=== PATIENT | female | born 1990 | race Caucasian/White ===

== ENCOUNTER 2018-01-11 08:00 | Outpatient (CLI) | payer SELFPAY ==
[2018-01-11 15:54] LABS: MUDS CUTOFF CONCENTRATIONS CUTOFF CONC BELOW:
[2018-01-11 16:21] LABS: AMPHETAMINE SCREEN,URINE NEGATIVE (NEGATIVE); BENZODIAZEPINES SCREEN, URINE NEGATIVE (NEGATIVE); COCAINE SCREEN URINE NEGATIVE (NEGATIVE); METHADONE SCREEN, URINE NEGATIVE (NEGATIVE); METHAMPHETAMINES SCREEN, URINE NEGATIVE (NEGATIVE); OPIATE SCREEN, URINE POSITIVE (NEGATIVE); OXYCODONE SCREEN, URINE NEGATIVE (NEGATIVE); PROPOXYPHENE SCREEN, URINE NEGATIVE (NEGATIVE); TRICYCLIC ANTIDEPRESSANT,URINE NEGATIVE (NEGATIVE)
== END 2018-01-11 08:01 ==
LOC: LAB.R 08:00
PROVIDERS: ATTEND Nurse Practitioner Obstetrics & Gynecology
DX: Z36.9 Encounter for antenatal screening, unspecified (principal)
CPT/HCPCS: 80306

== ENCOUNTER 2018-01-13 08:00 | Outpatient (CLI) | payer OTHER ==
[2018-01-13 12:40] LABS: HGB - HEMOGLOBIN 12.9 g/dL (12.0-16.0); MEAN CORPUSCULAR HEMOGLOBIN 32.2 pg (27.0-31.0); MEAN CORPUSCULAR HGB CONC 35.8 g/dL (32.0-36.0); MEAN CORPUSCULAR VOLUME 90.1 fL (81.0-99.0); MEAN PLATELET VOLUME 7.6 fL (7.9-10.8); RED CELL DISTRIBUTION WIDTH 12.8 % (12.0-15.0); WHITE BLOOD COUNT 10.9 x10^3/uL (4.8-10.8)
== END 2018-01-13 08:01 ==
LOC: LAB.WCP 08:00
PROVIDERS: ATTEND Nurse Practitioner Obstetrics & Gynecology
DX: Z36.9 Encounter for antenatal screening, unspecified (principal)
CPT/HCPCS: 36415; 82950; 85027; 86850

== ENCOUNTER 2018-01-26 08:00 | Outpatient (CLI) | payer OTHER | END 2018-01-26 08:01 | disposition home or self-care (01) | LOC: LAB.R 08:00 | PROVIDERS: ATTEND Registered Nurse | DX: O60.03 Preterm labor without delivery, third trimester (principal) | CPT/HCPCS: 82731 ==

== ENCOUNTER 2018-01-26 15:45 | Outpatient (CLI) | payer OTHER ==
[2018-01-26 15:58] VITALS: BP 107/74
[2018-01-26] MEDS ORDERED: BETAMETHASONE 30 MG/5 ML VIAL IM ONE (17:00)
--- NOTE | 2018-01-26 17:50 | CONSULTATION NOTE ---
DATE OF SERVICE: 01/26/2018 Physician: Shoaib Ramírez MD PATIENT IDENTIFICATION: Patient is a 27-year-old G2, P1 female whose EDC is 06/2017. This makes her 31 weeks and 1 day. CHIEF COMPLAINT: Brown vaginal discharge. HISTORY OF PRESENT ILLNESS: Patient was seen in the clinic today by Wayne Stubbs, at which time she was noted to have a vaginal brown discharge. An FFN was performed. Following this, pelvic examination showed the internal os to be 1 cm, the external os 5 cm. Her last child was delivered at 39 weeks, however, following a 3-hour labor. She denies any cramps or any other symptoms at this particular time. OB HISTORY: Significant in that she was a transfer from the [facility]. Her first visit was at 29 weeks. She has had none since then. Her drug screen was noted to be positive for opioids. Her first child was delivered on 09/19/2015 at 39 weeks' gestation with a 3-hour labor. PAST MEDICAL HISTORY: Patient denies any hypertensive, diabetic or cardiac disease. PAST SURGICAL HISTORY: Positive for a cholecystectomy. ALLERGIES: NONE KNOWN. CURRENT MEDICATIONS: vitamins. She has received 12.5 mg of betamethasone IM. SOCIAL HISTORY: Patient is to an active duty [employer]. HABITS: Patient denies use of alcohol, tobacco, street or addictive drugs. PHYSICAL EXAMINATION: Patient's heart rate monitor was reviewed. There is no evidence of any contractions. heart rate has a baseline of roughly 135-140. There is accelerations seen. IMPRESSION: A 27-year-old G2, P1 female at 31 and 1 weeks with brown vaginal discharge. Her FFN has been noted to be negative and her cervix external os is noted to be 5, but the internal os is 1 cm. At this particular time, we will monitor. As she is not having contractions, she will be allowed to go home. She will need to return in 24 hours for repeat betamethasone. She will be cautioned regarding contractions or loss of fluid. TD: 01/26/2018 17:15 MARY LOU
== END 2018-01-26 19:40 | disposition home or self-care (01) ==
LOC: WFO 15:45 → FBP 15:47 → WFO 19:40
PROVIDERS: ATTEND Obstetrics & Gynecology
DX: O47.03 False labor before 37 completed weeks of gestation, third trimester (principal); Z3A.31 31 weeks gestation of pregnancy
CPT/HCPCS: 82731; 96372; 99213

== ENCOUNTER 2018-01-27 08:00 | Outpatient (CLI) | payer OTHER | END 2018-01-27 08:01 | LOC: LAB.R 08:00 | PROVIDERS: ATTEND Registered Nurse | DX: O60.03 Preterm labor without delivery, third trimester (principal) | CPT/HCPCS: 87491; 87591 ==

== ENCOUNTER 2018-01-27 15:48 | Outpatient (CLI) | payer OTHER ==
[2018-01-27] MEDS ORDERED: BETAMETHASONE 30 MG/5 ML VIAL IM ONE (16:45)
[2018-01-27 17:28] LABS: BILIRUBIN,URINE NEGATIVE (NEGATIVE); CLARITY,URINE CLEAR (CLEAR); GLUCOSE, URINE (UA) NEGATIVE (NEGATIVE); KETONES,URINE (UA) NEGATIVE (NEGATIVE); LEUKOCYTE ESTERASE, URINE NEGATIVE (NEGATIVE); NITRITE,URINE NEGATIVE (NEGATIVE); OCCULT BLOOD,URINE NEGATIVE (NEGATIVE); PROTEIN,URINE NEGATIVE (NEGATIVE); UROBILINOGEN,URINE 0.2 (NORMAL) E.U./dL (NORMAL)
[2018-01-27 17:40] VITALS: BP 107/63
[2018-01-27] MEDS ORDERED: BETAMETHASONE 30 MG/5 ML VIAL IM SCH (20:58)
== END 2018-01-27 17:00 | disposition home or self-care (01) ==
LOC: WFO 15:48 → FBP 15:54 → WFO 17:00
PROVIDERS: ATTEND Registered Nurse
DX: O47.03 False labor before 37 completed weeks of gestation, third trimester (principal); Z3A.31 31 weeks gestation of pregnancy
CPT/HCPCS: 59025; 81001; 81003; 87086; 87491; 87591; 96372

== ENCOUNTER 2018-02-23 08:00 | Outpatient (CLI) | payer OTHER | END 2018-02-23 08:01 | LOC: LAB.R 08:00 | PROVIDERS: ATTEND Nurse Practitioner Obstetrics & Gynecology | DX: Z36.85 Encounter for antenatal screening for Streptococcus B (principal) | CPT/HCPCS: 87797 ==

== ENCOUNTER 2018-03-25 03:15 | Inpatient (IN) | payer OTHER ==
[2018-03-25] MEDS ORDERED: LIDOCAINE 1% 50 ML MDV ONE ×2 (03:38→09:49)
--- NOTE | 2018-03-25 03:54 | HISTORY & PHYSICAL EXAMINATION ---
Admit History - Instructions [place]/Slash: -Left hand click circles element as positive or present. -Right hand click slashes element as negative or not present. - Visit Reason Visit Reason: Contractions (beginning at 0100) - : 2 Parity: 1 Premature: 0 Ectopic: 0 : 0 Care: positive: [facility], Other ([employer]) Complications This : positive: Other ( labor w/ tocolysis & BMZ administered @ 32 weeks' gestation, no progression) Smoking Status: Never smoker - Mother's Labs Mother's Blood Type: positive: O Mother's RH: positive: Positive GBS: positive: Group B Strep Positive Rubella Status: positive: Non-immune Meds/Allgy - Allergies Allergies/Adverse Reactions: Allergies Allergy/AdvReac Type Severity Reaction Status Date / Time No Known Drug Allergies Allergy Verified 01/26/18 16:01 Review of Systems - Constitutional Constitutional: denies: Fatigue, Fever, Chills - Eyes Eyes: denies: Blurred vision - Cardiovascular Cariovascular: denies: Irregular heart rate, Palpitations, Chest pain, Edema - Respiratory Respiratory: denies: Cough, SOB at rest, SOB with exertion - Gastrointestinal Gastrointestinal: reports: Abdominal pain (contractions). denies: Constipation, Diarrhea, Change in bowel habits, Nausea, Vomiting - Genitourinary Genitourinary: denies: Dysuria, Frequency, Urgency - Musculoskeletal Musculoskeletal: reports: Back pain. denies: Muscle pain - Integumentary Integumentary: denies: Rash, Pruritis, Lesions - Neurological Neurological: denies: General weakness, Focal weakness, Headache - Psychiatric Psychiatric: denies: Depression, Anxiety Physical - Abdominal Exam Contraction Intensity: positive: Strong Uterine Resting Tone: positive: Soft - Monitoring Heart Rate Baseline: 125 Strip Review: positive: Category I - Presentation Presentation: positive: Vertex - Vaginal Exam Membranes: positive: Membranes intact Dilation (in cm): 10 Effacement (%): 100 Station: positive: 1 Cervical Position: positive: Anterior - Speculum Exam Speculum Exam Performed: positive: No Findings: negative: Gross leak - Other Notes Labor Progress Note/Additional Text: Yamilex Arango is a 27 y/o @ 39w3d by first trimester US whose was complicated by + opioids on initial UTOX w/ denial of illicit use, labor @ 31 weeks w/ administration of BMZ x2 @ that time, rubella nonimmune status, hx of HSV w/ suppression t/o third trimester of , GBS positive status & hx of precipitous delivery. She presented this evening complete & pushing & delivered within 12 minutes of arriving at the hospital. Please see delivery note for details. PMH: unremarkable PSH: cholecystectomy 2016, no complications OBhx: , precipitous 2013 gynhx: Hx HSV on suppression, hx BV, denies hx abnormal pap sochx: to [facility], denies DV, denies ETOH/drugs/tobacco, unemployed famhx: noncontributory Plan for Labor - Plan For Labor I expect patient to be DC'd or transferred within 96 hours.: Yes Plan for Labor: admit
[2018-03-25] MEDS ORDERED: MAGNESIUM HYDROXIDE 2,400 MG/30 ML UDC PO PRN (04:04)
[2018-03-25] MEDS ORDERED: HYDROCORTISONE/PRAMOXINE 10 GM PR PRN (04:04)
[2018-03-25] MEDS ORDERED: WITCH HAZEL/GLYCERIN 1 EACH MED..PAD TOP PRN (04:04)
[2018-03-25] MEDS ORDERED: OXYTOCIN 10 UNIT/ML VIAL IM ONE (04:04)
[2018-03-25] MEDS ORDERED: HYDROCORTISONE 1% CREAM 28 GM TUBE PR PRN (04:04)
[2018-03-25] MEDS ORDERED: MEASLES,MUMPS & RUBELLA VACC 0.5 ML VIAL SUBQ ONE (04:04)
--- NOTE | 2018-03-25 04:04 | DELIVERY NOTE ---
Delivery Note - Labor Labor: positive: Spontaneous - Delivery Method Delivery Method: positive: Spontaneous vaginal delivery - Presentation Presentation: positive: Vertex, MARCOS - left occiput anterior - Nuchal Cord Nuchal Cord: positive: None - Anesthetic Anesthetic Type: Anesthetic: positive: Lidocaine - 1% plain Volume: positive: Other (10mL) - Amniotic Fluid Description Amniotic Fluid Description: positive: Clear (SROM with emergence of head) - Episiotomy Type Episiotomy Type: positive: None - Laceration Laceration: positive: 1st degree - Suture Suture Type: positive: Vicryl Suture Size: positive: 2-0 - Delivery Outcome Delivery Outcome: positive: Livebirth - : positive: Placed in direct skin contact with mother, Stimulated, Warmed, [place] used [place] sex: positive: Female - Cord Cord: positive: 3 vessels - Placenta Placenta: positive: Intact, Spontaneous - Estimated Blood Loss Estimated Blood Loss (in cc): 250 - Post Delivery Events Post Delivery Events: positive: No post delivery events - Delivery Comments (Free Text/Narrative) Delivery Comments (Free Text/Narrative): Yamilex Arango is a 27 y/o @ 39w3d by first trimester US who presented this evening in spontaneous, active labor w/ onset of uterine contractions @ 0100. She arrived complete & pushing @ 0324, for a total first stage of 2 hours, 24 minutes. She pushed w/ spontaneous urge & intact BOW to viable female in MARCOS position en caul @ 0336, for a total 2nd stage duration of 12 minutes; SROM w/ delivery of shoulders after delivery of head, delivered rapidly, vigorous, w/ spontaneous, lusty cry. passed through maternal legs to maternal abdomen. Apgars 8/9. Modified active management of the third stage of labor w/ 10units Pitocin IM s/p delivery of . Delayed cord clamping until cessation of pulsation, then cord clamped x2 by CNM, cut by FOB, 3VC noted, cord blood obtained. Placenta del spont & intact, Myrtle, @ 0337, for a total 3rd stage duration of 1 minute. FF @ U. Vagina & perineum inspected & 1st degree perineal laceration noted, repaired s/p infiltration w/ 10mL 1% lidocaine w/ 3 stitches 2-0 vicryl. Hemostatic & well-approximated. EBL 250mL. Mother & infant stable. Actively w/ 04/07 latch w/in minutes of delivery. Did not receive IPAP for GBS positive status, will plan 48-hour stay.
[2018-03-25] MEDS ORDERED: OXYTOCIN/SODIUM CHLORIDE 250 ML IV ONE (05:19)
[2018-03-25] MEDS ORDERED: METHYLERGONOVINE 0.2 MG/ML AMP IM ONE (05:19)
[2018-03-25] MEDS ORDERED: SODIUM CHLORIDE FLUSH 0.9% 10 ML SYRINGE ONE ×2 (05:24→10:21)
[2018-03-25] MEDS: ACETAMINOPHEN 500 MG TABLET PO SCH ×3 (05:49→22:12)
[2018-03-25] MEDS: IBUPROFEN 800 MG TABLET PO SCH ×3 (05:50→20:19)
[2018-03-25 05:55] LABS: BASOPHILS # (AUTO) 0.1 10^3/uL (0.0-0.1); BASOPHILS % (AUTO) 0.4 %; EOSINOPHILS % (AUTO) 0.2 %; HGB - HEMOGLOBIN 13.2 g/dL (12.0-16.0); LYMPHOCYTES # (AUTO) 1.4 10^3/uL (1.5-3.5); LYMPHOCYTES % (AUTO) 8.1 %; MEAN CORPUSCULAR HEMOGLOBIN 31.2 pg (27.0-31.0); MEAN CORPUSCULAR HGB CONC 34.9 g/dL (32.0-36.0); MEAN CORPUSCULAR VOLUME 89.3 fL (81.0-99.0); MEAN PLATELET VOLUME 7.2 fL (7.9-10.8); MONOCYTES # (AUTO) 0.7 10^3/uL (0.0-1.0); MONOCYTES % (AUTO) 3.8 %; NEUTROPHILS # (AUTO) 15.4 10^3/uL (1.5-6.6); NEUTROPHILS % (AUTO) 87.5 %; PLT - PLATELET COUNT 228 10^3/uL (130-450); RED BLOOD COUNT 4.25 10^6/uL (4.20-5.40); WHITE BLOOD COUNT 17.6 x10^3/uL (4.8-10.8)
[2018-03-25] MEDS: DOCUSATE SODIUM 100 MG CAPSULE PO SCH ×2 (09:31→22:12)
[2018-03-25] MEDS ORDERED: LIDOCAINE 1% 50 ML MDV TD ONE (09:38)
[2018-03-25] MEDS: SIMETHICONE CHEW 80 MG TABLET PO SCH ×2 (10:12→14:05)
[2018-03-26] MEDS: IBUPROFEN 800 MG TABLET PO SCH ×4 (02:03→21:57)
[2018-03-26] MEDS: ACETAMINOPHEN 500 MG TABLET PO SCH ×3 (06:23→21:58)
[2018-03-26] MEDS: SIMETHICONE CHEW 80 MG TABLET PO SCH ×3 (08:14→14:25)
[2018-03-26] MEDS: DOCUSATE SODIUM 100 MG CAPSULE PO SCH ×2 (08:27→21:58)
--- NOTE | 2018-03-26 09:04 | PROVIDER PROGRESS NOTE ---
Subjective - Subjective Subjective: S: Bonding well with baby. without difficulty. Denies pain. Bleeding decreased and is scant. Mood is good. supportive at the bedside. Baby had a 10% weight loss in 24 hours - suspect initial weight error. O: BP 100/54, T36.8, HR71, RR16 Heart RRR w/o M/G/R, lungs CTAB, abdomen soft and nontender with fundus firm at -2. Bilateral LE"s no edema. Perineum intact. Light lochia rubra. Mood is good. A: 27yo -->P2 PPD#1 s/p TSVD of viable female infant GBS positive - no treatment secondary to precipitous delivery P: Continue routine care and medications. Plan for discharge home tomorrow. Pt verbalized understanding and agrees to above plan. Denies further questions or concerns at this time. Objective - Vital Signs/Intake & Output Vital Signs: Vital Signs x48h Temp Pulse Resp BP Pulse Ox 03/26/18 08:33 36.7 C 78 16 114/67 98 03/26/18 02:00 36.8 C 71 16 100/54 L 99 Intake & Output: Intake & Output 03/23/18 03/24/18 03/25/18 03/26/18 23:59 23:59 23:59 23:59 Intake Total 250 Output Total 1350 Balance -1100 - Lab Results Fish Bones: 03/25/18 05:35
[2018-03-27] MEDS: SIMETHICONE CHEW 80 MG TABLET PO SCH (04:29)
[2018-03-27] MEDS: IBUPROFEN 800 MG TABLET PO SCH ×2 (04:30→10:56)
--- NOTE | 2018-03-27 07:14 | Discharge Plan ---
Discharge Plan Disposition: 01 Home, Self Care Condition: Good Diet: Regular Activity Restrictions: No Restrictions Shower Restrictions: No Driving Restrictions: No Weight Bearing: Full Weight No Smoking: If you smoke, Please STOP! Call for help. Follow-up with: Yamilex Benavides CNM, ARNP [Provider Admit Priv/Credential] -
--- NOTE | 2018-03-27 07:22 | PROVIDER PROGRESS NOTE ---
Subjective - Subjective Subjective: FINAL PROGRESS NOTE S: Bonding well with baby. without difficulty and baby has gained weight in the past 24 hours. Pt states she can feel her breasts becoming more full and feels her milk is already starting to come in. She is experiencing right lower back discomfort that radiates down the back of her leg. She states the pain is new since the middle of the night and feels muscular in origin. She thinks she may have slept in a compromising position. Denies pain elsewhere and has been taking ibuprofen and tylenol and receiving adequate pain management. Bleeding is light. Mood is good. They are anxious to go home today. sleeping at the bedside. O: BP 112/66, T36.4, HR 71 RR 16 Heart RRR w/o M/G/R, lungs CTAB, abdomen soft and nontender with fundus firm at U-2. Perineum intact. Light lochia rubra. Bilateral LE's no edema. A: 27yo -->P2 s/p TSVD of viable female infant PPD#2 Rubella non-immune GBS positive - untreated secondary to precipitous delivery P: Reviewed self care and warning signs. Pt declines MMR and plans to receive at [facility]. Advised continuation of PNV while . Continue ibuprofen and tylenol for pain management. She intends to f/u with CNM at [facility] in 1 week for lactatio n support visit and then in 3 weeks for routine visit. Pt verbalized understanding and agrees to above plan. She denies further questions or concerns at this time. Objective - Vital Signs/Intake & Output Vital Signs: Vital Signs x48h Temp Pulse Resp BP Pulse Ox 03/27/18 04:31 36.4 C L 71 16 112/66 98 Intake & Output: Intake & Output 03/24/18 03/25/18 03/26/18 03/27/18 23:59 23:59 23:59 23:59 Intake Total 250 975 Output Total 1350 Balance -1100 975 - Lab Results Fish Bones: 03/25/18 05:35
[2018-03-27 07:37] VITALS: BP 126/82
[2018-03-27] MEDS: ACETAMINOPHEN 500 MG TABLET PO SCH (10:55)
[2018-03-27] MEDS: DOCUSATE SODIUM 100 MG CAPSULE PO SCH (10:56)
--- NOTE | 2018-03-27 12:08 | Labor Flowsheet ---
Labor Flowsheet Datetime Report Generated by CPN: 03/27/2018 12:08 Datetime: 03/26/2018 08:19 VITAL SIGNS NBP Sys/Ceci/Mean (mmHg): 114 : 67 : 78 Pulse: 69 COMMUNICATION LaborFlag: Labor Datetime: 03/26/2018 06:28 SpO2 (%): 99
--- NOTE | 2018-03-27 18:11 | DISCHARGE SUMMARY ---
Physician: GERALD Hall DATE OF ADMISSION: 03/25/2018 DATE OF DISCHARGE: 03/27/2018 DIAGNOSES ON ADMISSION 1. A 27-year-old G2, P1-0-0-1, at 39 and 3 weeks gestation. 2. GBS positive. 3. Active labor. 4. History of precipitous delivery. DIAGNOSES ON DISCHARGE, COURSE 1. A 27-year-old, G2, P2-0-0-2, status post spontaneous vaginal delivery on 03/25/2018. 2. Normal recovery. HISTORY OF PRESENT ILLNESS: Yamilex is a patient of [facility] who presents to [facility] with complaints of contractions. She arrived complete and pushing at 0324 for a total first stage duration of 2 hours and 24 minutes. She delivered a viable female infant en- caul at 0336. Spontaneous rupture of membranes occurred with delivery of shoulder after delivery of head. Apgars were 8 and 9 at 1 and 5 minutes respectively. EBL 250 mL. Vagina and perineum inspected and a first-degree laceration was noted and repaired in the usual fashion under sterile conditions with a 2-0 Vicryl. The patient has been doing well in her course. She is ambulating and tolerating a regular diet. She is without difficulty. Her lochia is normal and her perineal laceration is intact. Her pain is well controlled with oral medications. She has been given precautions to call if she has any worsening fevers, chills, abdominal pain, increased vaginal bleeding or foul smelling vaginal lochia. She intends to follow up with a CNM at [facility] in 1 week for support visit and then in 3 weeks for routine visit. She denies further questions or concerns today and will be discharged home on day #2. TD: 03/27/2018 07:35 MARY LOU
--- NOTE | 2018-03-27 18:34 | DISCHARGE SUMMARY ---
Physician: GERALD Hall DATE OF ADMISSION: 03/25/2018 DATE OF DISCHARGE: 03/27/2018 DIAGNOSES ON ADMISSION 1. A 27-year-old G2, P1-0-0-1, at 39 and 3 weeks gestation. 2. GBS positive. 3. Active labor. 4. History of precipitous delivery. DIAGNOSES ON DISCHARGE, COURSE 1. A 27-year-old, G2, P2-0-0-2, status post spontaneous vaginal delivery on 03/25/2018. 2. Normal recovery. HISTORY OF PRESENT ILLNESS: The patient is a patient of [facility] who presents to [facility] with complaints of contractions. She arrived complete and pushing a t 0324 for a total first stage of 2 hours and 24 minutes. She delivered a viable female en-ca ul at 0336. Spontaneous rupture of membranes occurred with delivery of shoulder after delivery of fe concepción head. Apgars were 8 and 9 at 1 and 5 minutes respectively. EBL 250 mL Vagina and perineum inspe cted and a first-degree laceration was noted and repaired in the usual fashion under sterile conditio ns with a 2-0 Vicryl. The patient has been doing well in her course. She is ambulating and tolerating a regular diet. She is without difficulty. Her lochia is normal and her perineal laceration is intact. Her pain is well controlled with oral medications. She has been given precautions to call if she has any worsening fevers, chills, abdominal pain, increased vaginal bleeding or foul smelling vaginal lochia. She intends to followup with a CNM at [facility] in 1 week for lact ation support visit and then in 3 weeks for routine visit. She denies further questions o r concerns today and will be discharged home on day #2. TD: 03/27/2018 07:35
== END 2018-03-27 12:05 | disposition home or self-care (01) | DRG 775 ==
LOC: WFO 03:15 → FBP 03:17 → WFO 04:19 → FBP 04:20 → OBS 03-26 10:23
PROVIDERS: ADMIT Registered Nurse; ATTEND Nurse Practitioner Obstetrics & Gynecology
PROC: 10E0XZZ Delivery of Products of Conception, External Approach (ICD-10-PCS; principal; 2018-03-25)
PROC: 0HQ9XZZ Repair Perineum Skin, External Approach (ICD-10-PCS; 2018-03-25)
DX: O99.824 Streptococcus B carrier state complicating childbirth (principal); Z37.0 Single live birth; O70.0 First degree perineal laceration during delivery; Z3A.39 39 weeks gestation of pregnancy; O62.3 Precipitate labor
CPT/HCPCS: 85025; 86850; 86900; 86901

== ENCOUNTER 2019-06-03 19:17 | Emergency (ER) | payer OTHER ==
[2019-06-03 19:53] LABS: BASOPHILS % (AUTO) 0.3 %; EOSINOPHILS % (AUTO) 0.2 %; HGB - HEMOGLOBIN 13.7 g/dL (12.0-16.0); LYMPHOCYTES # (AUTO) 0.4 10^3/uL (1.5-3.5); LYMPHOCYTES % (AUTO) 3.3 %; MEAN CORPUSCULAR HEMOGLOBIN 29.9 pg (27.0-31.0); MEAN CORPUSCULAR HGB CONC 34.6 g/dL (32.0-36.0); MEAN CORPUSCULAR VOLUME 86.5 fL (81.0-99.0); MEAN PLATELET VOLUME 9.2 fL (7.9-10.8); MONOCYTES # (AUTO) 0.4 10^3/uL (0.0-1.0); MONOCYTES % (AUTO) 2.8 %; NEUTROPHILS # (AUTO) 12.3 10^3/uL (1.5-6.6); NEUTROPHILS % (AUTO) 92.9 %; PLT - PLATELET COUNT 260 10^3/uL (130-450); RED BLOOD COUNT 4.58 10^6/uL (4.20-5.40); RED CELL DISTRIBUTION WIDTH 12.3 % (12.0-15.0); WHITE BLOOD COUNT 13.2 x10^3/uL (4.8-10.8)
[2019-06-03 20:14] LABS: ALBUMIN/GLOBULIN RATIO 1.7 (1.0-2.2); BILIRUBIN,TOTAL 1.1 mg/dL (0.2-1.0); CALCIUM 9.4 mg/dL (8.5-10.3); CREATININE 0.8 mg/dL (0.4-1.0)
[2019-06-03 20:41] LABS: GLUCOSE, URINE (UA) NEGATIVE (NEGATIVE); KETONES,URINE (UA) NEGATIVE (NEGATIVE); LEUKOCYTE ESTERASE, URINE NEGATIVE (NEGATIVE); NITRITE,URINE NEGATIVE (NEGATIVE); OCCULT BLOOD,URINE NEGATIVE (NEGATIVE); PH,URINE 5.5 PH (5.0-7.5); PROTEIN,URINE TRACE mg/dL (NEGATIVE); UROBILINOGEN,URINE 0.2 (NORMAL) E.U./dL (NORMAL)
[2019-06-03 20:52] LABS: BILIRUBIN,URINE NEGATIVE (NEGATIVE); CLARITY,URINE CLOUDY (CLEAR); HCG UR QUAL NEGATIVE; ICTOTEST,URINE NEGATIVE
[2019-06-03] MEDS ORDERED: SODIUM CHLORIDE 0.9% 1,000 ML IV STA (20:52)
[2019-06-03] MEDS ORDERED: ONDANSETRON 4 MG/2 ML VIAL IVP STA (20:52)
[2019-06-03 20:53] LABS: AMORPHOUS SEDIMENT,UR Marked /LPF; BACTERIA,URINE None Seen /HPF (None Seen); MUCUS,URINE Few Strands; RBC,URINE None Seen /HPF (0-5); SQUAMOUS EPITHELIAL CELL,UR NONE SEEN (<= Few)
--- NOTE | 2019-06-03 20:55 | ED Physician Documentation ---
PD HPI NVD - Stated complaint Stated Complaint: N/V/D CHEST TIGHTNESS, ABD PAIN - Chief complaint Chief Complaint: Abd Pain - History obtained from History obtained from: Patient - History of Present Illness Timing - onset: Today Timing - duration: Hours Timing - details: Gradual onset, Waxing and waning Pain level now: 4 Associated symptoms: Abdominal pain (lower abdomen). No: Fever, Dysuria Improved by: Other (nothing) Worsened by: Eating Similar symptoms before: Has not had sx before Recently seen: Not recently seen - Additonal information Additional information: c/o nausea, vomiting, diarrhea since this afternoon. As the intensity and frequency of these symptoms have progressed, she has developed chest tightness/heaviness, with dizziness, tremulousness, generalized weakness, and cramping abdominal pain across lower abdomen. Review of Systems Constitutional: reports: Chills, Fatigue. denies: Fever, Sweats Cardiac: reports: Chest pain / pressure. denies: Palpitations, Pedal edema, Calf pain Respiratory: reports: Dyspnea. denies: Cough GI: reports: Abdominal Pain, Nausea, Vomiting, Diarrhea : denies: Dysuria, Frequency Musculoskeletal: reports: Reviewed and negative Neurologic: reports: Generalized weakness. denies: Focal weakness, Numbness, Headache PD PAST MEDICAL HISTORY - Past Medical History Past Medical History: No - Past Surgical History Past Surgical History: Yes General: Cholecystectomy - Present Medications Home Medications: Ambulatory Orders Medication Instructions Recorded Confirmed Diphenoxylate/Atropine [Lomotil] 1 each PO QID PRN #14 tablet 06/03/19 Ondansetron Odt [Zofran] 4 mg TL Q6H PRN #10 tablet 06/03/19 - Allergies Allergies/Adverse Reactions: Allergies Allergy/AdvReac Type Severity Reaction Status Date / Time No Known Drug Allergies Allergy Verified 06/03/19 19:31 - Living Situation Living Arrangement: reports: At home - Social History Smoking Status: Never smoker PD ED PE NORMAL - Vitals Vital signs reviewed: Yes - General General: Alert and oriented X 3, No acute distress, Well developed/nourished - HEENT HEENT: Moist mucous membranes - Neck Neck: Supple, no meningeal sign - Cardiac Cardiac: RRR, No murmur - Respiratory Respiratory: No respiratory distress, Clear bilaterally - Abdomen Abdomen: Normal bowel sounds, Soft, Non tender, Non distended - Back Back: No CVA TTP - Derm Derm: Normal color, Warm and dry - Extremities Extremities: No edema Results - Vitals Vitals: Vital Signs - 24 hr 06/03/19 06/03/19 19:31 23:29 Temperature 36.6 C Heart Rate 104 H 90 Respiratory 14 18 Rate Blood Pressure 103/64 108/68 O2 Saturation 98 98 Oxygen O2 Source Room air - EKG (time done) No standard instances Rate: Rate (enter#) (109) Rhythm: Sinus tachycardia [place]: Normal Intervals: Normal PA QRS: Normal Ischemia: Normal ST segments, T wave inversion (V1, V2 (biphasic V3)) - Labs Labs: Laboratory Tests 06/03/19 06/03/19 06/03/19 19:44 19:44 19:44 WBC 13.2 H RBC 4.58 Hgb 13.7 Hct 39.6 MCV 86.5 MCH 29.9 MCHC 34.6 RDW 12.3 Plt Count 260 MPV 9.2 Neut # (Auto) 12.3 H Lymph # (Auto) 0.4 L [place] # (Auto) 0.4 Eos # (Auto) 0.0 Baso # (Auto) 0.0 Absolute Nucleated RBC 0.00 Nucleated RBC % 0.0 Sodium 139 Potassium 3.8 Chloride 102 Carbon Dioxide 26 Anion Gap 11.0 BUN 17 Creatinine 0.8 Estimated GFR (MDRD) 87 L Glucose 126 H Calcium 9.4 Total Bilirubin 1.1 H AST 23 ALT 20 Alkaline Phosphatase 53 Troponin I High Sens < 2.3 L Total Protein 8.0 Albumin 5.0 Globulin 3.0 Albumin/Globulin Ratio 1.7 Lipase 30 Urine Color Urine Clarity Urine pH Ur Specific [place] Urine Protein Urine Glucose (UA) Urine Ketones Urine Occult Blood Urine Nitrite Urine Bilirubin Urine Urobilinogen Ur Leukocyte Esterase Urine RBC Urine WBC Ur Squamous Epith Cells Amorphous Sediment Urine Bacteria Urine Mucus Ur Microscopic Review Urine Culture Comments Urine HCG, Qual 06/03/19 20:35 WBC RBC Hgb Hct MCV MCH MCHC RDW Plt Count MPV Neut # (Auto) Lymph # (Auto) [place] # (Auto) Eos # (Auto) Baso # (Auto) Absolute Nucleated RBC Nucleated RBC % Sodium Potassium Chloride Carbon Dioxide Anion Gap BUN Creatinine Estimated GFR (MDRD) Glucose Calcium Total Bilirubin AST ALT Alkaline Phosphatase Troponin I High Sens Total Protein Albumin Globulin Albumin/Globulin Ratio Lipase Urine Color YELLOW Urine Clarity CLOUDY Urine pH 5.5 Ur Specific [place] >=1.030 H Urine Protein TRACE Urine Glucose (UA) NEGATIVE Urine Ketones NEGATIVE Urine Occult Blood NEGATIVE Urine Nitrite NEGATIVE Urine Bilirubin NEGATIVE Urine Urobilinogen 0.2 (NORMAL) Ur Leukocyte Esterase NEGATIVE Urine RBC None Seen Urine WBC 0-3 Ur Squamous Epith Cells NONE SEEN Amorphous Sediment Marked Urine Bacteria None Seen Urine Mucus Few Strands Ur Microscopic Review INDICATED Urine Culture Comments NOT INDICATED Urine HCG, Qual NEGATIVE PD MEDICAL DECISION MAKING - ED course Complexity details: reviewed results, re-evaluated patient, considered differential, d/w patient Departure - Departure Disposition: 01 Home, Self Care Clinical Impression: Vomiting and diarrhea Condition: Good Instructions: ED Diet Vomiting Diarrhea, ED Vomiting Diarrhea Nonspecific Ad Prescriptions: Diphenoxylate/Atropine [Lomotil] 1 each PO QID PRN #14 tablet PRN Reason: Diarrhea Ondansetron Odt [Zofran] 4 mg TL Q6H PRN #10 tablet PRN Reason: Nausea / Vomiting Discharge Date/Time: 06/03/19 23:32
[2019-06-03] MEDS ORDERED: DIPHENOX/ATROPINE 2.5/0.025 MG TABLET PO STA (23:22)
[2019-06-03 23:29] VITALS: BP 108/68
== END 2019-06-03 23:32 | disposition home or self-care (01) ==
LOC: ED 19:17
DX: R11.2 Nausea with vomiting, unspecified (principal); R19.7 Diarrhea, unspecified
CPT/HCPCS: 36415; 80053; 81001; 81025; 83690; 84484; 85025; 93005; 96360; 99284; A9270; 81003; 87086

== ENCOUNTER 2020-08-24 07:45 | Outpatient (CLI) | payer OTHER ==
--- NOTE | 2020-08-24 11:00 | XRAY Report ---
PROCEDURE: Ankle 3 View LT INDICATIONS: LEFT ANKLE PAIN TECHNIQUE: 3 views of the ankle were acquired. COMPARISON: None. FINDINGS: Bones: No fractures or dislocations. Ankle mortise is normally aligned. No suspicious bony lesions . Soft tissues: Moderate-sized tibiotalar joint effusion. Achilles tendon appears normal. IMPRESSION: No fracture. Moderate-sized ankle joint effusion may indicate ligamentous injury, which c an be further evaluated with MRI. Reviewed by: Trevor Musa MD on 08/24/2020 10:58 AM [facility] Approved by: Trevor Musa MD on 08/24/2020 10:58 AM [facility] Station ID: [id number]
== END 2020-08-24 23:59 | disposition home or self-care (01) ==
LOC: DI.N 07:45
PROVIDERS: ATTEND Family Medicine
DX: M25.572 Pain in left ankle and joints of left foot (principal); M25.472 Effusion, left ankle

== ENCOUNTER 2021-07-25 19:55 | Emergency (ER) | payer OTHER ==
[2021-07-25 20:12] VITALS: BP 131/73
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
== END 2021-07-25 20:55 | disposition home or self-care (01) ==
LOC: ED 19:55
DX: S16.1XXA Strain of muscle, fascia and tendon at neck level, initial encounter (principal); V43.52XA Car driver injured in collision with other type car in traffic accident, initial encounter; Y93.89 Activity, other specified; Y92.410 Unspecified street and highway as the place of occurrence of the external cause
CPT/HCPCS: 99281; 99282

== ENCOUNTER 2021-08-09 14:09 | Outpatient (CLI) | payer OTHER ==
--- NOTE | 2021-08-09 14:43 | XRAY Report ---
PROCEDURE: Cervical Spine 2 View INDICATIONS: Acute neck pain TECHNIQUE: 3 view(s) of the cervical spine were acquired. COMPARISON: None. FINDINGS: Normal cervical spine vertebral body height and alignment. No degenerative changes. No suspicious lyt ic or blastic osseous lesion. Regional soft tissues are normal. IMPRESSION: Normal study. Reviewed by: Trevor Musa MD on 08/09/2021 2:41 PM PST Approved by: Trevor Musa MD on 08/09/2021 2:41 PM PST Station ID: [id number]
== END 2021-08-09 14:10 | disposition home or self-care (01) ==
LOC: DI 14:09
PROVIDERS: ATTEND Internal Medicine
DX: M54.2 Cervicalgia (principal); Z91.89 Other specified personal risk factors, not elsewhere classified

== ENCOUNTER 2021-08-23 09:05 | Outpatient (CLI) | payer OTHER ==
--- NOTE | 2021-08-23 11:03 | CT Report ---
PROCEDURE: HEAD WO INDICATIONS: HEADACHE TECHNIQUE: Noncontrast 4.5 mm thick angled axial sections acquired from the foramen magnum to the vertex. For r adiation dose reduction, the following was used: automated exposure control, adjustment of mA and/or kV according to patient size. COMPARISON: None. FINDINGS: Image quality: Excellent. CSF spaces: Basal cisterns are patent. No extra-axial fluid collections. Ventricles are normal in size and shape. Brain: No midline shift. No intracranial masses or hemorrhage. Chu-white matter interface is norm al. Skull and face: Calvarium and visualized facial bones are intact, without suspicious lesions. Sinuses: Visualized sinuses and mastoids are clear. IMPRESSION: No intracranial disease process. Reviewed by: Nadege Wesley MD, PhD on 08/23/2021 11:02 AM PST Approved by: Nadege Wesley MD, PhD on 08/23/2021 11:02 AM [facility] Station ID: [id number]
== END 2021-08-23 09:06 | disposition home or self-care (01) ==
LOC: DI 09:05
PROVIDERS: ATTEND Internal Medicine
DX: G44.89 Other headache syndrome (principal)

== ENCOUNTER 2021-10-08 08:00 | Outpatient (CLI) | payer OTHER | END 2021-10-08 23:59 | disposition home or self-care (01) | LOC: LAB.R 08:00 | PROVIDERS: ATTEND Physician Assistant Medical | DX: J06.9 Acute upper respiratory infection, unspecified (principal); Z20.822 Contact with and (suspected) exposure to COVID-19 ==

== ENCOUNTER 2021-10-14 08:54 | Outpatient (CLI) | payer OTHER ==
[2021-10-14 09:17] LABS: BASOPHILS % (AUTO) 0.6 %; EOSINOPHILS # (AUTO) 0.2 10^3/uL (0.0-0.7); EOSINOPHILS % (AUTO) 3.2 %; HCT - HEMATOCRIT 37.8 % (37.0-47.0); HGB - HEMOGLOBIN 13.5 g/dL (12.0-16.0); LYMPHOCYTES # (AUTO) 1.4 10^3/uL (1.5-3.5); LYMPHOCYTES % (AUTO) 22.7 %; MEAN CORPUSCULAR HGB CONC 35.7 g/dL (32.0-36.0); MEAN PLATELET VOLUME 8.9 fL (7.9-10.8); MONOCYTES # (AUTO) 0.4 10^3/uL (0.0-1.0); MONOCYTES % (AUTO) 5.8 %; NEUTROPHILS # (AUTO) 4.2 10^3/uL (1.5-6.6); NEUTROPHILS % (AUTO) 66.9 %; PLT - PLATELET COUNT 283 10^3/uL (130-450); RED CELL DISTRIBUTION WIDTH 11.9 % (12.0-15.0); WHITE BLOOD COUNT 6.3 x10^3/uL (4.8-10.8)
[2021-10-14 10:04] LABS: BILIRUBIN,URINE NEGATIVE (NEGATIVE); GLUCOSE, URINE (UA) NEGATIVE (NEGATIVE); KETONES,URINE (UA) NEGATIVE (NEGATIVE); LEUKOCYTE ESTERASE, URINE NEGATIVE (NEGATIVE); NITRITE,URINE NEGATIVE (NEGATIVE); OCCULT BLOOD,URINE NEGATIVE (NEGATIVE); PH,URINE 6.5 PH (5.0-7.5); PROTEIN,URINE NEGATIVE (NEGATIVE); UROBILINOGEN,URINE 0.2 (NORMAL) E.U./dL (NORMAL)
[2021-10-14 10:07] LABS: ALBUMIN 4.2 g/dL (3.2-5.5); ALBUMIN/GLOBULIN RATIO 1.4 (1.0-2.2); ALKALINE PHOSPHATASE 55 IU/L (42-121); ALT ALANINE AMINOTRANSFERASE 39 IU/L (10-60); AST ASPARTATE AMINOTRANSFERASE 22 IU/L (10-42); BILIRUBIN,TOTAL 0.2 mg/dL (0.2-1.0); BUN - BLOOD UREA NITROGEN 10 mg/dL (6-20); CALCIUM 8.8 mg/dL (8.5-10.3); CARBON DIOXIDE - CO2 25 mmol/L (21-32); CHLORIDE 102 mmol/L (101-111); CHOL/HDL RATIO 5.4 (<4.4); CHOLESTEROL 150 mg/dL; CREATININE 0.7 mg/dL (0.4-1.0); GFR - MDRD 99 (>89); GLUCOSE 98 mg/dL (70-100); HDL CHOLESTEROL 28 mg/dL; LDL CHOLESTEROL,CALCULATED 44 mg/dL; LDL/HDL RATIO 1.6 (<4.4); SODIUM 136 mmol/L (135-145); TOTAL PROTEIN 7.3 g/dL (6.7-8.2); TRIGLYCERIDES 388 mg/dL; VLDL CHOLESTEROL 78 mg/dL
[2021-10-14 10:08] LABS: CLARITY,URINE CLEAR (CLEAR)
[2021-10-14 10:14] LABS: THYROID STIMULATING HORMONE 1.19 uIU/mL (0.34-5.60)
[2021-10-14 10:32] LABS: RBC,URINE 0-5 /HPF (0-5); WBC,URINE 0-3 /HPF (0-5)
[2021-10-14 10:33] LABS: BACTERIA,URINE Few /HPF (None Seen); SQUAMOUS EPITHELIAL CELL,UR FEW Squamous (<= Few)
== END 2021-10-14 08:55 | disposition home or self-care (01) ==
LOC: LAB 08:54
PROVIDERS: ATTEND Nurse Practitioner
DX: R53.83 Other fatigue (principal); Z13.220 Encounter for screening for lipoid disorders; Z13.1 Encounter for screening for diabetes mellitus
CPT/HCPCS: 36415; 80050; 80061; 81001; 81599; 83036; 83721; 87086

== ENCOUNTER 2022-10-29 08:22 | Outpatient (CLI) | payer OTHER ==
[2022-10-29 08:40] LABS: BASOPHILS % (AUTO) 0.5 %; EOSINOPHILS # (AUTO) 0.1 10^3/uL (0.0-0.7); EOSINOPHILS % (AUTO) 1.6 %; HCT - HEMATOCRIT 39.6 % (37.0-47.0); HGB - HEMOGLOBIN 13.7 g/dL (12.0-16.0); LYMPHOCYTES # (AUTO) 1.6 10^3/uL (1.5-3.5); LYMPHOCYTES % (AUTO) 26.1 %; MEAN CORPUSCULAR HEMOGLOBIN 29.9 pg (27.0-31.0); MEAN CORPUSCULAR HGB CONC 34.6 g/dL (32.0-36.0); MEAN CORPUSCULAR VOLUME 86.5 fL (81.0-99.0); MEAN PLATELET VOLUME 9.2 fL (7.9-10.8); MONOCYTES # (AUTO) 0.4 10^3/uL (0.0-1.0); MONOCYTES % (AUTO) 6.2 %; NEUTROPHILS % (AUTO) 65.1 %; PLT - PLATELET COUNT 250 10^3/uL (130-450); RED BLOOD COUNT 4.58 10^6/uL (4.20-5.40); WHITE BLOOD COUNT 6.1 x10^3/uL (4.8-10.8)
[2022-10-29 09:08] LABS: ALBUMIN 4.3 g/dL (3.2-5.5); ALBUMIN/GLOBULIN RATIO 1.5 (1.0-2.2); ALKALINE PHOSPHATASE 57 IU/L (42-121); ALT ALANINE AMINOTRANSFERASE 20 IU/L (10-60); AST ASPARTATE AMINOTRANSFERASE 16 IU/L (10-42); BILIRUBIN,TOTAL 0.7 mg/dL (0.2-1.0); BUN - BLOOD UREA NITROGEN 13 mg/dL (6-20); CALCIUM 8.9 mg/dL (8.5-10.3); CARBON DIOXIDE - CO2 26 mmol/L (21-32); CHLORIDE 105 mmol/L (101-111); CHOL/HDL RATIO 4.9 (<4.4); CHOLESTEROL 178 mg/dL; CREATININE 0.8 mg/dL (0.4-1.0); GFR - MDRD 84 (>89); GLUCOSE 106 mg/dL (70-100); HDL CHOLESTEROL 36 mg/dL; LDL CHOLESTEROL,CALCULATED 82 mg/dL; LDL/HDL RATIO 2.3 (<4.4); POTASSIUM 3.7 mmol/L (3.5-5.0); SODIUM 136 mmol/L (135-145); TOTAL PROTEIN 7.2 g/dL (6.7-8.2); TRIGLYCERIDES 299 mg/dL; VLDL CHOLESTEROL 60 mg/dL
[2022-10-29 09:17] LABS: THYROID STIMULATING HORMONE 1.69 uIU/mL (0.34-5.60)
[2022-10-29 12:28] LABS: ESTIMATED AVERAGE GLUCOSE 100 mg/dL (70-100); HEMOGLOBIN A1c% 5.1 % (4.27-6.07)
[2022-10-31 14:08] LABS: ANTINUCLEAR ANTIBODIES IFA Negative (.)
== END 2022-10-29 08:23 | disposition home or self-care (01) ==
LOC: LAB 08:22
PROVIDERS: ATTEND Nurse Practitioner
DX: R53.83 Other fatigue (principal); R21 Rash and other nonspecific skin eruption; E66.9 Obesity, unspecified; Z13.220 Encounter for screening for lipoid disorders; Z13.1 Encounter for screening for diabetes mellitus
CPT/HCPCS: 36415; 80050; 80061; 83036; 83721; 86038

== ENCOUNTER 2023-01-05 07:31 | Emergency (ER) | payer OTHER ==
[2023-01-05 08:20] LABS: BASOPHILS % (AUTO) 0.4 %; EOSINOPHILS # (AUTO) 0.1 10^3/uL (0.0-0.7); EOSINOPHILS % (AUTO) 1.9 %; HCT - HEMATOCRIT 39.6 % (37.0-47.0); LYMPHOCYTES # (AUTO) 1.4 10^3/uL (1.5-3.5); LYMPHOCYTES % (AUTO) 20.2 %; MEAN CORPUSCULAR HGB CONC 35.4 g/dL (32.0-36.0); MEAN PLATELET VOLUME 9.2 fL (7.9-10.8); MONOCYTES # (AUTO) 0.4 10^3/uL (0.0-1.0); NEUTROPHILS % (AUTO) 70.8 %; PLT - PLATELET COUNT 227 10^3/uL (130-450); RED BLOOD COUNT 4.66 10^6/uL (4.20-5.40); RED CELL DISTRIBUTION WIDTH 12.2 % (12.0-15.0)
[2023-01-05 08:34] LABS: ALBUMIN 4.3 g/dL (3.2-5.5); ALBUMIN/GLOBULIN RATIO 1.5 (1.0-2.2); BILIRUBIN,TOTAL 0.8 mg/dL (0.2-1.0); CREATININE 0.8 mg/dL (0.4-1.0); POTASSIUM 3.7 mmol/L (3.5-5.0); TOTAL PROTEIN 7.1 g/dL (6.7-8.2)
--- NOTE | 2023-01-05 09:05 | ED Physician Documentation ---
History of Present Illness - Stated complaint Stated Complaint: FEMALE - Chief complaint Chief Complaint: Abd Pain - History obtained from History obtained from: Patient - Additonal information Additional information: The patient comes to the emergency department chief complaint of vaginal bleeding that started about 5 days ago. It started as spotting and patient had an informal ultrasound at her OBs office a couple days later which showed a subchorionic hemorrhage but with a viable intrauterine . The patient states for a couple days after that, the bleeding escalated but now, seems to be back to just spotting. She has passed a few small clots but has not noticed any passage of tissue. No abdominal pain. Patient is known to be about 9 weeks . PD PAST MEDICAL HISTORY - Past Medical History Past Medical History: Yes - Past Surgical History Past Surgical History: Yes General: Cholecystectomy - Allergies Allergies/Adverse Reactions: Allergies Allergy/AdvReac Type Severity Reaction Status Date / Time No Known Drug Allergies Allergy Verified 01/05/23 07:47 - Social History Does the pt smoke?: No Smoking Status: Never smoker Does the pt drink ETOH?: No Does the pt have substance abuse?: No - Immunizations Immunizations are current?: Yes PD ED PE NORMAL - Vitals Vital signs reviewed: Yes - General General: Alert and oriented X 3, No acute distress, Well developed/nourished - HEENT HEENT: Atraumatic, PERRL, EOMI, Moist mucous membranes - Neck Neck: Supple, no meningeal sign - Cardiac Cardiac: RRR, No murmur, Strong equal pulses - Respiratory Respiratory: No respiratory distress, Clear bilaterally - Abdomen Abdomen: Soft, Non tender, Non distended - Derm Derm: Normal color, Warm and dry, No rash - Extremities Extremities: No deformity, No edema - Neuro Neuro: Alert and oriented X 3, picker tender helper 2-12 intact, Normal speech - Psych Psych: Normal mood, Normal affect Results - Vitals Vitals: Vital Signs - 24 hr 01/05/23 01/05/23 07:44 09:21 Temperature 37.0 C 36.8 C Heart Rate 85 80 Respiratory 16 16 Rate Blood Pressure 132/82 H 133/81 H O2 Saturation 98 98 Oxygen O2 Source Room air - Labs Labs: Laboratory Tests 01/05/23 01/05/23 01/05/23 08:15 08:15 08:15 WBC 7.0 RBC 4.66 Hgb 14.0 Hct 39.6 MCV 85.0 MCH 30.0 MCHC 35.4 RDW 12.2 Plt Count 227 MPV 9.2 Neut # (Auto) 5.0 Lymph # (Auto) 1.4 L [place] # (Auto) 0.4 Eos # (Auto) 0.1 Baso # (Auto) 0.0 Absolute Nucleated RBC 0.00 Nucleated RBC % 0.0 Sodium 136 Potassium 3.7 Chloride 105 Carbon Dioxide 25 Anion Gap 6.0 BUN 10 Creatinine 0.8 Estimated GFR (MDRD) 84 L Glucose 128 H Calcium 9.0 Total Bilirubin 0.8 AST 21 ALT 22 Alkaline Phosphatase 50 Total Protein 7.1 Albumin 4.3 Globulin 2.8 Albumin/Globulin Ratio 1.5 Lipase 36 HCG, Quant 66508.00 - Rads (name of study) OB ultrasound Relevant Findings:: Final report received, See rad report (Intrauterine demise) PD Medical Decision Making - ED course Complexity details: reviewed results, re-evaluated patient, considered differential, d/w patient ED course: The patient was worked up with a quantitative hCG which showed a level over 23,000. She was also worked up with an OB ultrasound, which showed a sac but no cardiac activity and just indistinct material within the sac as opposed to pole. I discussed with the patient that there is no longer evidence of life her fetus and that this almost certainly represents an impending miscarriage. The patient is established with Yamilex Benavides in OB and I have advised her to call Dr. Benavides's office as soon as she can to make a follow-up appointment. We have discussed symptomatic management at home and the usual indications for return. Departure - Departure Disposition: 01 Home, Self Care Clinical Impression: Miscarriage Condition: Stable Instructions: Miscarriage Dc Comments: Unfortunately, your ultrasound today did not show a live fetus in the amniotic sac. It is most likely that this represents an impending miscarriage, though you will need to follow up and make sure that your hormones are coming down appropriately. You should keep your appointment to follow-up with your OB spot welder. You will most likely develop more cramping and bleeding as the products make their exit from your uterus. You may try at any time, once the miscarriage is complete, to conceive another child. If you develop severe pain or bleeding, please return to the emergency department. Discharge Date/Time: 01/05/23 09:23
--- NOTE | 2023-01-05 09:22 | Ultrasound Report ---
PROCEDURE: OB First Trimester w/TV INDICATIONS: bleeding/cramping OUTSIDE/PRIOR DATING DATA: Last menstrual period (LMP): 11/01/2022. LMP-based estimated date of delivery (CEZAR): 08/08/2023. First dating scan (date and location): 01/05/2023. TECHNIQUE: Real-time scanning was performed of the fetus and maternal pelvic organs, with image documentation. Endovaginal scanning was also performed to better visualize the fetus and maternal ovaries. COMPARISON: None. FINDINGS: Intrauterine gestational sac present. Embryo: No pole at this time. Gestational sac estimated gestational age 6 weeks 1 day. Interna l debris. No yolk sac. Other: Small perigestational fluid collection measuring 0.6 x 0.5 cm. Measurement variability in dating: +/- 4 weeks by LMP, +/- 7 days by mean sac diameter (use before 6 weeks gestation if crown-rump length not able to be measured), +/- 5 days by crown-rump length (6-12 weeks gestation). Maternal organs: Ovaries appear within normal limits. Right paraovarian anechoic cyst measuring 0.9 x 0.9 x 0.8 cm. IMPRESSION: 1. Intrauterine gestational sac is present. Estimated gestational age 6 weeks 1 days. No pole o r yolk sac at this time. 2. Small perigestational hemorrhage. 3. Simple right paraovarian cyst measuring 0.9 cm. Reviewed by: Pepito Houston MD on 01/05/2023 9:20 AM PDT Approved by: Pepito Houston MD on 01/05/2023 9:20 AM PDT Station ID: [id number]
[2023-01-05 09:29] VITALS: BP 133/81
== END 2023-01-05 09:23 | disposition home or self-care (01) ==
LOC: ED 07:31
DX: O03.9 Complete or unspecified spontaneous abortion without complication (principal)
CPT/HCPCS: 36415; 80053; 83690; 84702; 85025; 99283; 99284

== ENCOUNTER 2023-01-07 10:27 | Emergency (ER) | payer OTHER ==
--- NOTE | 2023-01-07 10:43 | ED Physician Documentation ---
PD HPI FEMALE - Stated complaint Stated Complaint: FEMALE - Chief complaint Chief Complaint: Abd Pain - History obtained from History obtained from: Patient - History of Present Illness Timing - onset: Yesterday (The patient had little bit of cramping and spotting 5 days ago and seen in the office with ultrasound showing heartbeat and 6- week size. Had increased bleeding 2 days ago and seen in ER with ultrasound showing no heartbeat. Seen in office yesterday and given misoprostol. Signif bleeding.) Timing - details: Gradual onset, Still present Contributing factors: Recently seen: Clinic, Emergency Dept Review of Systems Constitutional: denies: Fever, Chills Nose: denies: Rhinorrhea / runny nose Throat: denies: Sore throat Cardiac: denies: Chest pain / pressure Respiratory: denies: Dyspnea, Cough PD PAST MEDICAL HISTORY - Past Medical History Cardiovascular: None Respiratory: None Endocrine/Autoimmune: None - Past Surgical History Past Surgical History: Yes General: Cholecystectomy - Allergies Allergies/Adverse Reactions: Allergies Allergy/AdvReac Type Severity Reaction Status Date / Time misoprostol Allergy Hives Verified 01/07/23 10:41 - Social History Does the pt smoke?: No Smoking Status: Never smoker Does the pt drink ETOH?: No Does the pt have substance abuse?: No - Immunizations Immunizations are current?: Yes PD ED PE NORMAL - Vitals Vital signs reviewed: Yes - General General: Alert and oriented X 3, No acute distress, Well developed/nourished - Abdomen Abdomen: Normal bowel sounds, Soft, Non distended, No organomegaly, Other (some tender without guarding suprapubic area. No percussion tenderness. ) - Female Female : Deferred - Derm Derm: Normal color, Warm and dry - Neuro Neuro: Alert and oriented X 3, Normal speech Results - Vitals Vitals: Vital Signs - 24 hr 01/07/23 01/07/23 01/07/23 10:37 10:55 11:13 Temperature 36 C L Heart Rate 140 H 95 87 Heart Rate [ Sitting] Heart Rate [ Standing] Heart Rate [ Supine] Respiratory 30 H 15 18 Rate Blood Pressure 114/83 H 108/77 86/59 L Blood Pressure [Sitting] Blood Pressure [Standing] Blood Pressure [Supine] O2 Saturation 99 97 98 01/07/23 01/07/23 01/07/23 11:57 13:22 14:03 Temperature Heart Rate 83 91 85 Heart Rate [ Sitting] Heart Rate [ Standing] Heart Rate [ Supine] Respiratory 18 20 16 Rate Blood Pressure 95/73 100/62 99/63 Blood Pressure [Sitting] Blood Pressure [Standing] Blood Pressure [Supine] O2 Saturation 100 99 100 01/07/23 01/07/23 01/07/23 15:03 15:29 16:27 Temperature Heart Rate 77 82 Heart Rate [ 82 Sitting] Heart Rate [ 98 Standing] Heart Rate [ 81 Supine] Respiratory 20 20 Rate Blood Pressure 111/70 108/65 Blood Pressure 113/70 [Sitting] Blood Pressure 112/67 [Standing] Blood Pressure 116/69 [Supine] O2 Saturation 100 98 01/07/23 17:11 Temperature 36.8 C Heart Rate 80 Heart Rate [ Sitting] Heart Rate [ Standing] Heart Rate [ Supine] Respiratory 20 Rate Blood Pressure 109/62 Blood Pressure [Sitting] Blood Pressure [Standing] Blood Pressure [Supine] O2 Saturation 98 Oxygen O2 Source Room air - Labs Labs: Laboratory Tests 01/07/23 01/07/23 01/07/23 10:46 10:46 10:46 WBC 9.1 RBC 4.21 Hgb 12.5 Hct 35.6 L MCV 84.6 MCH 29.7 MCHC 35.1 RDW 12.2 Plt Count 292 MPV 9.4 Neut # (Auto) 5.8 Lymph # (Auto) 2.6 [place] # (Auto) 0.5 Eos # (Auto) 0.1 Baso # (Auto) 0.1 Absolute Nucleated RBC 0.00 Nucleated RBC % 0.0 Sodium 136 Potassium 3.6 Chloride 106 Carbon Dioxide 25 Anion Gap 5.0 L BUN 10 Creatinine 0.9 Estimated GFR (MDRD) 74 L Glucose 123 H Calcium 8.8 Total Bilirubin 0.9 AST 19 ALT 21 Alkaline Phosphatase 48 Total Protein 7.0 Albumin 4.1 Globulin 2.9 Albumin/Globulin Ratio 1.4 Lipase 33 Blood Type O POSITIVE Antibody Screen NEGATIVE 01/07/23 13:48 WBC RBC Hgb 11.7 L Hct 34.1 L MCV MCH MCHC RDW Plt Count MPV Neut # (Auto) Lymph # (Auto) [place] # (Auto) Eos # (Auto) Baso # (Auto) Absolute Nucleated RBC Nucleated RBC % Sodium Potassium Chloride Carbon Dioxide Anion Gap BUN Creatinine Estimated GFR (MDRD) Glucose Calcium Total Bilirubin AST ALT Alkaline Phosphatase Total Protein Albumin Globulin Albumin/Globulin Ratio Lipase Blood Type Antibody Screen - Rads (name of study) OB U/S Relevant Findings:: Prelim report reviewed, EMP independent interpretation of test (No IUP seen. Thickened endometrium and clots, concerning for retained products.), See rad report PD Medical Decision Making - ED course Complexity details: reviewed results, considered differential, d/w patient, d/w sap bw consultant (Dr. Torres, hadoop consultant, who came to ED and met with patient after labs and ultrasound, discussed treatment options. ) ED course: The patient had an intrauterine demise with some spotting and cramping. She was seen here in the ER 2 days ago with these findings on ultrasound. Seen in the office yesterday by her nurse charge entry clerk and given misoprostol orally. Onset of cramping mildly but significant vaginal bleeding that persisted overnight and into this morning with large clots. She was using large pads or depend type pads as the regular feminine pads were not adequate. She was feeling generally weak and lightheaded. Here for evaluation. She had near syncope in the waiting room with the transient low blood pressure and tachycardia. This improved with laying down. She was feeling better with IV fluids as well. Her blood pressure was in the 80s systolic transiently and improved with fluids. She did feel lightheaded going to the bathroom again but not to the same degree. I did consult Dr. Torres who is on-call for RELEASE OF INFORMATION SPECIALIST. He came and evaluated the patient and reviewed ultrasound and vital signs and labs. With the concern for incomplete miscarriage at this point, we discussed with the patient and they opted on a second dose of misoprostol. She was also given Methergine for uterine bleeding. The patient states she is having tapering of her vaginal bleeding though still having some. She got up to the bathroom and back and did not feel lightheaded but still had a feeling of general weakness. Dr. Torres felt the patient could be discharged if she was tolerating fluids and did not have altered vital signs with postural changes and felt well enough with some tapering of bleeding. These seem to be fulfilled at this point and the patient did feel okay with trying going home. To return as needed. Her blood count from 2 days ago was 14 hemoglobin and today was 12.5 initially and decreased to 11.7 but that was after 2 L of IV fluid as well. Ultrasound reading was showing no obvious sac that had been present 2 days ago. There is some clots and/or small amount of thickened endometrium concerning for some products of conception retained. The patient is discharged in stable condition with normal orthostatic vital signs performed and no lightheadedness walking to the bathroom and back. Departure - Departure Disposition: 01 Home, Self Care Clinical Impression: Vaginal bleeding, Miscarriage, Near syncope, Transient hypotension Condition: Stable Record reviewed to determine appropriate education?: Yes Instructions: ED Miscarriage Incom Follow-Up: Yamilex Benavides CNM, [employer] [Provider Admit Priv/Credential] - Jerry Torres MD [Provider Admit Priv/Credential] - Comments: Home and rest. Stay well-hydrated. Tylenol and/or ibuprofen if needed for pains or cramps. Follow-up with your RELEASE OF INFORMATION SPECIALIST in the next 1 to 2 days. Return if worsening degree of bleeding, lightheadedness, abdominal pains or any fever, or other symptoms. Discharge Date/Time: 01/07/23 17:12
[2023-01-07 10:57] LABS: BASOPHILS # (AUTO) 0.1 10^3/uL (0.0-0.1); BASOPHILS % (AUTO) 0.7 %; EOSINOPHILS # (AUTO) 0.1 10^3/uL (0.0-0.7); EOSINOPHILS % (AUTO) 1.2 %; HCT - HEMATOCRIT 35.6 % (37.0-47.0); HGB - HEMOGLOBIN 12.5 g/dL (12.0-16.0); LYMPHOCYTES # (AUTO) 2.6 10^3/uL (1.5-3.5); LYMPHOCYTES % (AUTO) 28.5 %; MEAN CORPUSCULAR HEMOGLOBIN 29.7 pg (27.0-31.0); MEAN CORPUSCULAR HGB CONC 35.1 g/dL (32.0-36.0); MEAN CORPUSCULAR VOLUME 84.6 fL (81.0-99.0); MEAN PLATELET VOLUME 9.4 fL (7.9-10.8); MONOCYTES # (AUTO) 0.5 10^3/uL (0.0-1.0); NEUTROPHILS # (AUTO) 5.8 10^3/uL (1.5-6.6); NEUTROPHILS % (AUTO) 63.9 %; PLT - PLATELET COUNT 292 10^3/uL (130-450); RED BLOOD COUNT 4.21 10^6/uL (4.20-5.40); RED CELL DISTRIBUTION WIDTH 12.2 % (12.0-15.0); WHITE BLOOD COUNT 9.1 x10^3/uL (4.8-10.8)
[2023-01-07] MEDS ORDERED: SODIUM CHLORIDE 0.9% 1,000 ML IV STA ×3 (11:03→12:27)
[2023-01-07 11:05] LABS: ALBUMIN 4.1 g/dL (3.2-5.5); ALBUMIN/GLOBULIN RATIO 1.4 (1.0-2.2); BILIRUBIN,TOTAL 0.9 mg/dL (0.2-1.0); CALCIUM 8.8 mg/dL (8.5-10.3); CREATININE 0.9 mg/dL (0.4-1.0); POTASSIUM 3.6 mmol/L (3.5-5.0)
[2023-01-07] MEDS ORDERED: miSOPROStoL 200 MCG TABLET BC PRN (12:22)
--- NOTE | 2023-01-07 12:22 | CONSULTATION NOTE ---
Surgery Consult - Home Meds/Allergies Allergies/Adverse Reactions: Allergies Allergy/AdvReac Type Severity Reaction Status Date / Time misoprostol Allergy Hives Verified 01/07/23 10:41 - Vital Signs Vital Signs: Last Vital Signs Temp 96.8 F L 01/07/23 10:37 Pulse 83 01/07/23 11:57 Resp 18 01/07/23 11:57 BP 95/73 01/07/23 11:57 Pulse Ox 100 01/07/23 11:57 O2 Flow Rate Intake & Output: Intake & Output 01/04/23 01/05/23 01/06/23 01/07/23 23:59 23:59 23:59 23:59 Intake Total 1999 Balance 1999 - Lab Results Result Diagrams: 01/07/23 13:48 01/07/23 10:46 - Consultation Note Consultation Note: Patient is a 32-year-old -0-1-2, but had an ultrasound 2 days ago 6-week gestational sac and was determined to have a nonviable . She received misoprostol in the clinic. She started bleeding a couple hours after the dose of misoprostol and has continued to bleed overnight. She felt this was too much and came in. She had some dizziness and hypotension here and was started on IV fluids. She is currently lying in bed and feels better although continues to bleed. Hemoglobin did fall from 14.0-12.5. Blood pressure now stable, but with a adilson of 86/59. I was called evaluate her bleeding. She did receive a transvaginal ultrasound the emergency department which shows no gestational sac as previously seen. All other symptoms reviewed and were negative except per HPI. PMH Cholecystitis Reactive airway disease PSH Laparoscopic cholecystectomy SH Denies tobacco, alcohol, drugs. Family History Maternal grandmother: Diabetes, hypertension, breast cancer Allergies No known drug allergies Medications vitamins Tylenol Ibuprofen Misoprostol x1 Physical exam: General: Alert, oriented, lying in bed. Head: Normal cephalic atraumatic Eyes: PERRLA, extraocular motions intact. Respiratory: Normal rate of respiration. No accessory muscle use, normal respiratory effort. Cardiovascular: Regular rate and rhythm Abdomen: Nontender, nondistended Neuro: Oriented x3. Normal movements Psych: Appropriate mood and affect. Normal judgment and insight Transvaginal ultrasound shows no gestational sac. Plan 32-year-old -0-1-2 at approxi-6 weeks gestation with incomplete 1. Incommplete -Continues to bleed moderately. No gestational sac seen on ultrasound, although final read is not available. My review of the images looks like this there collapsed or was passed. -Discussed D&C versus medical management. -Patient currently hemodynamically stable aside from an episode of hypotension, may have been some vasovagal passing tissue. Now blood pressures have normalized and pulse has been normal. -Patient received misoprostol 800 mg buccal and 1 dose of IM Methergine. -Patient did have some hives on her forehead yesterday with misoprostol, but not a body rash and no anaphylaxis. We will premedicate with Benadryl as allergies to misoprostol f relatively rare. -Offered surgery, but patient preferred medical management. -Patient's bleeding has greatly subsided and is no longer dizzy And can likely go home. Vitals are stable. Discussed following up in clinic. She will call or return to the ED if she has a repeat episode of heavy bleeding, dizziness, lightheadedness, or passing out.
[2023-01-07] MEDS ORDERED: diphenhydrAMINE 25 MG CAPSULE PO STA (12:29)
[2023-01-07] MEDS ORDERED: METHYLERGONOVINE 0.2 MG/ML VIAL IM SCH (13:00)
[2023-01-07] MEDS ORDERED: METHYLERGONOVINE 0.2 MG/ML VIAL IM ONE (13:00)
--- NOTE | 2023-01-07 13:08 | Ultrasound Report ---
PROCEDURE: OB First Trimester INDICATIONS: miscarrying, heavy bleeding OUTSIDE/PRIOR DATING DATA: Last menstrual period (LMP): 11/01/2022. LMP-based estimated date of delivery (CEZAR): 08/08/2023. First dating scan (date and location): 01/05/2023. Estimated date of delivery (CEZAR) from first dating scan: Not available. TECHNIQUE: Real-time scanning was performed of the fetus and maternal pelvic organs, with image documentation. COMPARISON: 01/05/2023 FINDINGS: No intrauterine gestational sac is present. Thickened endometrium with heterogeneous echotexture and increased vascularity. No cardiac activity is detected. IMPRESSION: 1. No intrauterine gestation is seen. No cardiac activity. 2. Thickened endometrium with heterogeneous echotexture and increased vascularity concerning for raymond ined products and blood clots. Reviewed by: Kwan Ayala MD on 01/07/2023 1:06 PM PDT Approved by: Kwan Ayala MD on 01/07/2023 1:06 PM PDT Station ID: [id number]
--- NOTE | 2023-01-07 13:09 | Ultrasound Report ---
PROCEDURE: OB Transvaginal INDICATIONS: miscarrying, heavy bleeding OUTSIDE/PRIOR DATING DATA: Last menstrual period (LMP): 11/01/2022. LMP-based estimated date of delivery (CEZAR): 08/08/2023. First dating scan (date and location): 01/05/2023. Estimated date of delivery (CEZAR) from first dating scan: Not available. TECHNIQUE: Transvaginal ultrasound examination of the pelvis, with image documentation. COMPARISON: 01/05/2023 FINDINGS: No intrauterine gestational sac is present. Thickened endometrium with heterogeneous echotexture and increased vascularity. No cardiac activity is detected. IMPRESSION: 1. No intrauterine gestation is seen. No cardiac activity. 2. Thickened endometrium with heterogeneous echotexture and increased vascularity concerning for raymond ined products and blood clots. Reviewed by: Kwan Ayala MD on 01/07/2023 1:07 PM PDT Approved by: Kwan Ayala MD on 01/07/2023 1:07 PM PDT Station ID: [id number]
[2023-01-07 13:53] LABS: HCT - HEMATOCRIT 34.1 % (37.0-47.0); HGB - HEMOGLOBIN 11.7 g/dL (12.0-16.0)
[2023-01-07 17:19] VITALS: BP 109/62
== END 2023-01-07 17:12 | disposition home or self-care (01) ==
LOC: ED 10:27
DX: O03.4 Incomplete spontaneous abortion without complication (principal); I95.9 Hypotension, unspecified; N93.9 Abnormal uterine and vaginal bleeding, unspecified
CPT/HCPCS: 36415; 76801; 76817; 80053; 83690; 85014; 85018; 85025; 86850; 86900; 86901; 93005; 96372; 99284; A9270; J2210

== ENCOUNTER 2024-08-14 13:24 | Inpatient (IN) ==
[2024-08-14] MEDS ORDERED: LACTATED RINGERS 1,000 ML IV PRN (13:28)
[2024-08-14] MEDS ORDERED: OXYTOCIN 10 UNIT/ML VIAL IM PRN (13:28)
[2024-08-14] MEDS ORDERED: fentaNYL 100 MCG/2 ML VIAL IVP PRN (13:28)
[2024-08-14] MEDS ORDERED: hydrALAZINE INJ 20 MG/ML VIAL IVP PRN (13:28)
[2024-08-14] MEDS ORDERED: OXYTOCIN/SODIUM CHLORIDE 500 ML IV PRN (13:28)
[2024-08-14] MEDS ORDERED: METHYLERGONOVINE 0.2 MG/ML VIAL IM PRN (13:28)
[2024-08-14] MEDS ORDERED: TRANEXAMIC ACID IN NACL 1,000 MG/100 ML BAG IV PRN (13:28)
[2024-08-14] MEDS ORDERED: SODIUM CHLORIDE FLUSH 0.9% 10 ML SYRINGE IVP PRN (13:28)
[2024-08-14] MEDS ORDERED: LABETALOL 20 MG/4 ML SYRINGE IVP PRN ×3 (13:28)
[2024-08-14] MEDS ORDERED: TERBUTALINE 1 MG/ML VIAL SUBQ PRN (13:28)
[2024-08-14] MEDS ORDERED: NIFEdipine 10 MG CAPSULE PO PRN (13:28)
[2024-08-14] MEDS ORDERED: ONDANSETRON 4 MG/2 ML VIAL IVP PRN (13:36)
[2024-08-14] MEDS ORDERED: SODIUM CHLORIDE FLUSH 0.9% 10 ML SYRINGE IVP SCH (14:00)
[2024-08-14 14:17] LABS: BASOPHILS % (AUTO) 0.3 %; EOSINOPHILS # (AUTO) 0.1 10^3/uL (0.0-0.7); EOSINOPHILS % (AUTO) 0.7 %; HCT - HEMATOCRIT 39.1 % (37.0-47.0); HGB - HEMOGLOBIN 13.2 g/dL (12.0-16.0); LYMPHOCYTES # (AUTO) 1.2 10^3/uL (1.5-3.5); LYMPHOCYTES % (AUTO) 12.1 %; MEAN CORPUSCULAR HEMOGLOBIN 30.8 pg (27.0-31.0); MEAN CORPUSCULAR HGB CONC 33.8 g/dL (32.0-36.0); MEAN CORPUSCULAR VOLUME 91.1 fL (81.0-99.0); MONOCYTES # (AUTO) 0.6 10^3/uL (0.0-1.0); MONOCYTES % (AUTO) 5.8 %; NEUTROPHILS # (AUTO) 7.6 10^3/uL (1.5-6.6); NEUTROPHILS % (AUTO) 80.2 %; PLT - PLATELET COUNT 213 10^3/uL (130-450); RED BLOOD COUNT 4.29 10^6/uL (4.20-5.40); RED CELL DISTRIBUTION WIDTH 13.2 % (12.0-15.0); WHITE BLOOD COUNT 9.5 x10^3/uL (4.8-10.8)
[2024-08-14] MEDS: AMPICILLIN 2 GM in SODIUM CHLORIDE 0.9% MINIBAG 100 ML IV ONE (14:26)
[2024-08-14] MEDS: AMPICILLIN 1 GM in SODIUM CHLORIDE 0.9% MINIBAG 100 ML IV SCH (18:30)
--- NOTE | 2024-08-14 21:15 | HISTORY & PHYSICAL EXAMINATION ---
Admit History Smoking Status: Never smoker HPI Current : Vital Signs Temperature 97.9 F 08/14/24 14:37 Pulse Rate 89 08/14/24 14:37 Respiratory Rate 18 08/14/24 14:37 Blood Pressure 126/76 08/14/24 14:37 Meds/Allgy Home Medications Ambulatory Orders Medication Instructions Recorded Confirmed blood sugar diagnostic (FreeStyle #100 ea 06/28/24 08/11/24 Test strips) vit,calcium 93-ferrous tab PO 06/28/24 08/11/24 fum 9 mg iron-folic acid 267 mg tablet ( Formula) Allergies Allergies Allergy/AdvReac Type Severity Reaction Status Date / Time misoprostol Allergy Hives Verified 08/11/24 08:54 [facility] Surgical History Surgical History (Updated 07/04/24 @ 14:48 by Rocío Thomas RN) Hx of cholecystectomy Family History Family History (Updated 07/04/24 @ 14:47 by Rocío Thomas RN) Mother Diabetes High blood pressure Maternal grandmother Breast cancer Diabetes Social History Social History Smoking Status: Never smoker Do you dip or chew tobacco?: No Do you vape?: No Patient requests smoking cessation consult: No Initiate information on smoking cessation: No Living arrangement: At home Relationship: Spouse Physical Abdominal Exam Vital Signs: Temp Pulse Resp BP 97.9 F 89 18 126/76 08/14/24 14:37 08/14/24 14:37 08/14/24 14:37 08/14/24 14:37 Plan for Labor Plan For Labor I expect patient to be DC'd or transferred within 96 hours.: Yes Plan for Labor: HPI: Yamilex is a 33yo @ 39.2wks gestation by 1st trimester ultrasound who presents today to [facility] for medical induction of labor secondary to A1GDM. Upon arrival she is noted to be 5/70/-2 and vertex with intact membranes. FHR baseline 150s, moderate variability, + accels, no decels. Contractions palpate mild occasionally with soft resting tone. She states she has had occasional contractions throughout the day today and yesterday but denies any consistent or overly uncomfortable contractions. She denies vaginal bleeding or leakage of fluid and reports +FM. She has been a patient of [facility] since her transfer of care from [place] at 34 weeks gestation. She was initially established with myself at [facility] but transferred care to [place] while her was on deployment so she could be near her family. Her has been complicated by gestational diabetes. She has maintained tight glycemic control throughout the duration of her . She completed a growth ultrasound at 31wks with EFW 17%tile. She is also noted to be GBS positive. She has a history of precipitous labor and delivery so she will be admitted for initiation of IV antibioitics prior to induction of labor. She is supported by her Chau today. Dating criteria: LMP: 11/04/23 CEZAR by LMP: 08/10/24 US:01/19/25- 9w5d, not c/w dates Final CEZAR: 08/19/24 PROBLEMS: -A1GDM: Has maintained tight glycemic control -BMI>30 : 07/2015, @ 38wks. Female. Unmedicated. 3600g G2: 02/2018, @ 38wks. Female. Unmedicated. 2948g G3: SAB @ 10wks G4: Current Medical Hx: Obesity Surgical Hx: Cholecystectomy 2017 Social Hx: Monogamous with male partner Ramez who is active duty [employer]. Stopped drinking alcohol due to . Denies current use of tobacco, marijuana or other recreational drugs. Reports that she is safe in current relationship. Family Hx: Denies family history of congenital anomalies, Cystic Fibrosis or chromosomal abnormalities. Breast cancer - MGM, Diabetes- mother, MGM; HTN - Mother; Alcoholism - mother, father Allergies: Misoprostol - causes hives RX: Vitamin Surgeries: cholecystectomy-2016 FM HX: MGM breast cancer, Hypertension Mom:: Hypertension GF lung CA Mom and Dad: Alcoholism Pre- Weight: 212.08 BMI: 33.29 Blood type: O+ Antibody: neg CBC: H/H: 13.3/37.2 plt 233 RUB: Non-imm VZV: imm HBsAg: neg HepC: neg RPR/AB-EIA: NR HIV: neg PAP: unsure, likely early 2023 and was WNL, denies hx abnormal - records requested from [facility] GC/CT: neg HSV: denies in self and partner Genetic testing: NIPT- neg FAS: 03/31/24 Placenta: posterior Cord: 3VC IVANIA: - normal EFW: 339g 3rd trimester growth ultrasound (06/07 @ 30.6wks) WNL EFW 17%tile 50gm OGCT: 172 3HR GTT: 93, 212,158, 72 TDAP: 03/31 Breast Pump: has GBS: 07/28/2024 POSITIVE Delivery plan: Desires unmedicated delivery, wants to catch the baby. Delayed cord clamping, immediate skin to skin. . Physical Exam: Normocephalic, atraumatic Heart RRR w/o M/G/R Lungs CTAB Abdomen gravid, soft, nontender FHR baseline 150s moderate variability, + accels, no decels Contractions palpate mild occasionally with soft resting tone SVE 5/70/-2, vertex with intact membranes. EFW 3600g Bilateral LE's trace edema Mood is good Assessment: 33yo @ 34.0wks gestation by 1st trimester ultrasound A1GDM with tight glycemic control Obesity affecting FHR Category I GBS positive Plan: Admit patient for administration of IV ampicillin for GBS prophylaxis per protocol. AROM 4 hrs after antibiotic initiation. Continuous monitoring. Jacuzzi PRN. Nitrous oxide PRN. Epidural per maternal request however she intends an unmedicated delivery. Anticipate . Conclusion/Plan Lab Results 08/14/24 14:05
[2024-08-14] MEDS: LACTATED RINGERS 1,000 ML IV SCH (22:43)
[2024-08-15] MEDS: lidocaine 1% 20 ML MDV ID PRN (00:45)
[2024-08-15] MEDS ORDERED: OXYTOCIN/SODIUM CHLORIDE 500 ML IV PRN (01:29)
[2024-08-15] MEDS ORDERED: HYDROCORTISONE 1% CREAM 28 GM TUBE TOP PRN (01:29)
[2024-08-15] MEDS ORDERED: SIMETHICONE CHEW 80 MG TABLET PO PRN (01:29)
[2024-08-15] MEDS ORDERED: ACETAMINOPHEN 500 MG TABLET PO PRN (01:29)
[2024-08-15] MEDS ORDERED: WITCH HAZEL/GLYCERIN 1 PAD TOP PRN (01:29)
--- NOTE | 2024-08-15 01:35 | DELIVERY NOTE ---
Delivery Note Delivery Comments (Free Text/Narrative) Delivery Comments (Free Text/Narrative): Labor: This 33 year old @ 39.3 wks gestation by 9wk U/S who presented to [facility] for induction of labor secondary to GDM. Cervix was 5/70/-2 and vertex. Secondary to GBS positive status and hx of precipitous delivery she was given antibiotics prior to any intervention. She received 2 doses of ampicillin for GBS prophylaxis per protocol and adequate treatment. FHR demonstrated Category I pattern throughout labor. AROM occurred at 1750 and was noted to be a large amount of clear fluid. : She progressed to c/c/ with rapid SVB of viable male on 08/15/2024 @ 0031 with RN attending. No nucal. The was placed on maternal abdomen, stimulated, dried, and placed skin to skin. 's were __/__ at 1 and 5 min respectively. Pitocin administered via IV for hemostasis. The umbilical cord was allowed to stop pulsating at which time it was doubly clamped by CNM and cut by FOB. Cord blood was obtained. 3VC. Fundal massage and gentle cord traction applied for active management of the third stage. Placenta delivered spontaneously and intact at 0041. EBL 200 mL. Fourth stage: Uterine fundus firm and there is no excessive bleeding. The perineum, vagina, and cervix were inspected and found to have a 1st degree vaginal laceration which was repaired using a 3-[address]-1 needle, in standard fashion and under sterile conditions. Vaginal examination following repair was performed. Tissues well approximated. initiated. Both mother and baby were left in stable condition.
[2024-08-15] MEDS: IBUPROFEN 800 MG TABLET PO PRN (07:29)
[2024-08-15] MEDS: DOCUSATE SODIUM 100 MG CAPSULE PO SCH (08:16)
--- NOTE | 2024-08-15 11:35 | PHARMACY PROGRESS NOTE ---
Best Possible Medication History Admit Date and Time: 08/14/24 1328 Home Medications Medication Instructions Recorded Confirmed Type blood sugar diagnostic (FreeStyle #100 ea 06/28/24 08/11/24 Rx Test strips) vit,calcium 93-ferrous 1 tab PO DAILY 06/28/24 08/15/24 History fum 9 mg iron-folic acid 267 mg tablet ( Formula) Processed by: Pharmacy Medications reviewed in ED?: No Medication History completed: Yes [facility] Statement: As the person ultimately responsible for medication therapy, providers are able to order a medication from an existing home medication list in [facility] via the "Reconcile Routine" prior to Confirmation of that medication by computer support specialist instructor. Such practice is discouraged except when the physician, in their clinical judgment, deems that a medical need exists for a medication without regard to previous use.
[2024-08-15 13:04] VITALS: O2SAT 98
--- NOTE | 2024-08-15 14:03 | Discharge Summary ---
Discharge Summary HPI History of Present Illness: Date of Admission: 08/14/2024 Date of Discharge: 08/15/2024 Diagnosis on Admission: 1. 33yo @ 34.0wks gestation by 1st trimester ultrasound 2. A1GDM with tight glycemic control 3. Obesity affecting 4. FHR Category I 5. GBS positive Diagnosis on Discharge: 1. 33yo PPD#1 s/p TSVD viable male infant 2. 3. Normal recovery Brief History: She is a patient of /[facility] who presented on 08/14/2024 for medical induction of labor secondary to A1GDM. Cervix was 5/70/-2 and vertex with intact membranes. She was given 2 doses of Ampicillin for GBS prophylaxis per protocol at which time she AROM occurred and was noted to be a large amount of clear fluid. She spontaneously progressed to precipitously deliver a viable male on 08/15/2024 @ 0031. Perineum was found to have a 1st degree vaginal laceration which was repaired using a 3-[address]-1 needle in standard fashion and under sterile conditions. Apgars were 8/9 at 1 and 5 minutes respectively. QBL 200 mL initially followed by slightly increased blood flow 60 minutes which resolved follow administration of a second bag of pitocin. She has been doing well in her course. She is ambulating and tolerating a regular diet. She is urinating without difficulty and her lochia is normal. Her pain is well controlled with oral medications. She will be discharged home today on day #1 with instructions to continue taking her vitamin while and to continue taking Ibuprofen and Tylenol over the counter as needed for pain management. She intends to follow up with myself at [facility] in 1 week for routine visit or sooner if needed. She has been given precautions to call if she has any worsening fevers, chills, abdominal pain, increased vaginal bleeding or foul smelling vaginal lochia. Physical Exam: Normocephalic, atraumatic. Heart RRR w/o M/G/R, lungs CTAB, abdomen soft and nontender with fundus firm at U, perineum intact, light lochia rubra, bilateral LE's no edema. Mood is good. ALLERGIES Allergies Allergy/AdvReac Type Severity Reaction Status Date / Time misoprostol Allergy Hives Verified 08/11/24 08:54 MEDICATIONS Ambulatory Orders Medication Instructions Recorded Confirmed vit,calcium 93-ferrous 1 tab PO DAILY 06/28/24 08/15/24 fum 9 mg iron-folic acid 267 mg tablet ( Formula) LABS 08/14/24 14:05 Discharge Plan Discharge Patient Disposition: Home, Self Care Prescriptions: Continued Formula 9 mg iron- 267 mcg tablet 1 tab PO DAILY Discontinued (DME) FreeStyle Test Strip See Rx Instructions .Route Qty: 100 0RF Rx Instructions: As directed Activity Restrictions: No Restrictions Diet: Regular Print Language: Chinese Patient Instructions: Vaginal After, , Self Care Follow-up Care: Jodi García ARNP [Primary Care Provider] - Yamilex Benavides CNM, ARNP [Provider Admit Priv/Credential] -
[2024-08-16 05:41] VITALS: BP 102/65; TEMP 97.9
--- NOTE | 2024-08-16 07:23 | PROVIDER PROGRESS NOTE ---
Subjective Prog Note Date Prog Note Date: 08/15/24 Prog Note Time: 18:30 Subjective Pt reports feeling: Improved Current Medications Current Medications Current Medications: Current Medications Generic Name Dose Route Start Last Admin Trade Name Alba PRN Reason Stop Dose Admin Acetaminophen 1,000 mg 08/15/24 01:29 Acetaminophen 500 Mg Tablet PO Q8HR PRN Mild Pain or Fever>38C(100.4F) Docusate Sodium 100 mg 08/15/24 09:00 08/15/24 21:10 Docusate Sodium 100 Mg Capsule PO 100 mg BID ADRIÁN Administration Hydralazine HCl 5 - 10 mg 08/14/24 13:28 Hydralazine Inj 20 Mg/Ml Vial IVP Q20M PRN SBP> or= 160 OR DBP> or= 110 Protocol Hydrocortisone 1 applic 08/15/24 01:29 Hydrocortisone 1% Cream 28 Gm Tube TOP QID PRN PERINEAL REPAIR Ibuprofen 800 mg 08/15/24 01:29 08/15/24 07:29 Ibuprofen 800 Mg Tablet PO 800 mg Q8HR PRN Administration Moderate Pain (Level 4-6) Labetalol HCl 20 - 80 mg 08/14/24 13:28 Labetalol 20 Mg/4 Ml Syringe IVP Q10M PRN SBP> or= 160 OR DBP> or= 110 Protocol Labetalol HCl 20 mg 08/14/24 13:28 Labetalol 20 Mg/4 Ml Syringe IVP .ONCE PRN SBP> or= 160 OR DBP> or= 110 Protocol Labetalol HCl 20 - 40 mg 08/14/24 13:28 Labetalol 20 Mg/4 Ml Syringe IVP Q10M PRN SBP> or= 160 OR DBP> or= 110 Protocol Nifedipine 10 - 20 mg 08/14/24 13:28 Nifedipine 10 Mg Capsule PO Q20M PRN SBP> or= 160 OR DBP> or= 110 Protocol Ondansetron HCl 4 mg 08/14/24 13:36 Ondansetron 4 Mg/2 Ml Vial IVP Q6HR PRN Nausea / Vomiting Simethicone 80 mg 08/15/24 01:29 Simethicone Chew 80 Mg Tablet PO TID PRN Gas Sodium Chloride 10 ml 08/14/24 13:28 Sodium Chloride Flush 0.9% 10 Ml Syringe IVP PRN PRN NEEDED PER PROVIDER ORDERS Witch Marjorie/Glycerin 1 pad 08/15/24 01:29 Erlin Marjorie/Glycerin 1 Pad TOP PRN PRN PERINEAL REPAIR Objective Vital Signs/Intake & Output Vital Signs: Vital Signs x48h Temp Pulse Resp BP Pulse Ox 08/16/24 05:40 36.6 C 79 14 102/65 98 08/16/24 01:36 36.7 C 84 14 121/79 98 Intake & Output: Intake & Output 08/13/24 08/14/24 08/15/24 08/16/24 23:59 23:59 23:59 23:59 Intake Total 300 / 300 Output Total 200 / 200 Balance 300 / 300 -200 / -200 Weight (kg) 246 lb 0.01 oz Lab Results 08/14/24 14:05
--- NOTE | 2024-08-16 07:23 | Discharge Summary ---
Discharge Summary HPI History of Present Illness: Date of Admission: 08/14/2024 Date of Discharge: 08/16/2024 Diagnosis on Admission: 1. 33yo @ 34.0wks gestation by 1st trimester ultrasound 2. A1GDM with tight glycemic control 3. Obesity affecting 4. FHR Category I 5. GBS positive Diagnosis on Discharge: 1. 33yo PPD#1 s/p TSVD viable male infant 2. 3. Normal recovery Brief History: She is a patient of /[facility] who presented on 08/14/2024 for medical induction of labor secondary to A1GDM. Cervix was 5/70/-2 and vertex with intact membranes. She was given 2 doses of Ampicillin for GBS prophylaxis per protocol at which time she AROM occurred and was noted to be a large amount of clear fluid. She spontaneously progressed to precipitously deliver a viable male on 08/15/2024 @ 0031. Perineum was found to have a 1st degree vaginal laceration which was repaired using a 3-[address]-1 needle in standard fashion and under sterile conditions. Apgars were 8/9 at 1 and 5 minutes respectively. QBL 200 mL initially followed by slightly increased blood flow 60 minutes which resolved follow administration of a second bag of pitocin. She has been doing well in her course. She is ambulating and tolerating a regular diet. She is urinating without difficulty and her lochia is normal. Her pain is well controlled with oral medications. She will be discharged home today on day #1 with instructions to continue taking her vitamin while and to continue taking Ibuprofen and Tylenol over the counter as needed for pain management. She intends to follow up with myself at [facility] in 1 week for routine visit or sooner if needed. She has been given precautions to call if she has any worsening fevers, chills, abdominal pain, increased vaginal bleeding or foul smelling vaginal lochia. Physical Exam: Normocephalic, atraumatic. Heart RRR w/o M/G/R, lungs CTAB, abdomen soft and nontender with fundus firm at U, perineum intact, light lochia rubra, bilateral LE's no edema. Mood is good. ALLERGIES Allergies Allergy/AdvReac Type Severity Reaction Status Date / Time misoprostol Allergy Hives Verified 08/11/24 08:54 MEDICATIONS Ambulatory Orders Medication Instructions Recorded Confirmed vit,calcium 93-ferrous 1 tab PO DAILY 06/28/24 08/15/24 fum 9 mg iron-folic acid 267 mg tablet ( Formula) LABS 08/14/24 14:05 Discharge Plan Discharge Patient Disposition: Home, Self Care Prescriptions: Continued Formula 9 mg iron- 267 mcg tablet 1 tab PO DAILY Discontinued (DME) FreeStyle Test Strip See Rx Instructions .Route Qty: 100 0RF Rx Instructions: As directed Activity Restrictions: No Restrictions Diet: Regular Print Language: Estonian Patient Instructions: Vaginal After, , Self Care Follow-up Care: Jodi García ARNP [Primary Care Provider] - Yamilex Benavides CNM, ARNP [Provider Admit Priv/Credential] -
--- NOTE | 2024-08-16 08:05 | Labor Flowsheet ---
Labor Flowsheet Datetime Report Generated by CPN: 08/16/2024 08:05 Datetime: 08/16/2024 05:40 VITAL SIGNS NBP Sys/Ceci/Mean (mmHg): 102 : 65 : 74 Pulse: 80 Datetime: 08/15/2024 02:46 Temperature (C): 36.6 Datetime: 08/15/2024 01:52 Membranes Ruptured Date/Time: 08/14/2024 17:50 Datetime: 08/15/2024 00:42 Stage of : Recovery Datetime: 08/15/2024 00:31 UTERINE ACTIVITY Monitor Mode: External Frequency (min): 1-2 Quality: Moderate Duration (sec): 40-60 Pattern: Normal: <= 5 Contractions in 10 Minutes Resting Tone (Palpate): Relaxed ASSESSMENT A Monitor Mode: Telemetry FHR Baseline Rate : 140 Variability: Moderate 6-25 bpm Datetime: 08/15/2024 00:01 Patient Care Comments: pt leaning over bed during contx, not tracing fhr during Datetime: 08/15/2024 00:00 Accelerations: 15X15 Datetime: 08/14/2024 23:59 VAGINAL EXAM Dilatation (cm): 5.0 Effacement (%): 70 Station: -1 Exam by: Joseline Smith, RNC Datetime: 08/14/2024 23:16 PATIENT CARE I/O Interventions: Up to BR Datetime: 08/14/2024 22:50 LaborFlag: Labor Datetime: 08/14/2024 22:30 FHR Baseline Changes: No Baseline Change Datetime: 08/14/2024 20:26 Respirations: 18 SpO2 (%): 97 Temperature Route: Oral Datetime: 08/14/2024 19:00 Decelerations: None Category: Category I Datetime: 08/14/2024 17:50 Membranes Rupture Method: Artificial Amniotic Fluid Color: Clear Amniotic Fluid Amount: Large Datetime: 08/14/2024 17:46 Communication Comments: cnm discussing AROM with pt Datetime: 08/14/2024 17:43 COMMUNICATION Communication: Provider at Bedside
== END 2024-08-16 08:03 | disposition home or self-care (01) | DRG 807 ==
LOC: WFO 13:24 → FBP 13:26
PROVIDERS: ADMIT Nurse Practitioner Obstetrics & Gynecology; ATTEND Nurse Practitioner Obstetrics & Gynecology